=== PATIENT | male | born 1930 ===

== ENCOUNTER 2017-11-07 08:18 | Day surgery (SDC) | payer MEDICARE, MEDICAID ==
[2017-11-07 09:06] VITALS: BMI 24.2
[2017-11-07] MEDS ORDERED: Lactated Ringer's 1,000 ML IV ONE (11:10)
[2017-11-07] MEDS ORDERED: Lidocaine Hydrochloride 5 ML INJ ONE (11:11)
[2017-11-07] MEDS ORDERED: Propofol 10 mg/ml Inj (20 ML) ONE (11:11)
[2017-11-07] MEDS ORDERED: Etomidate 20 mg/10ml Inj IV ONE (11:15)
[2017-11-07 11:56] VITALS: TEMP 96.4
[2017-11-07 12:52] VITALS: O2SAT 100
[2017-11-07 13:06] VITALS: BP 108/72; PULSE 60; RESP 12
== END 2017-11-07 13:00 | disposition home or self-care (01) ==
LOC: C.ENDO 08:18
PROVIDERS: ATTEND Internal Medicine Gastroenterology
DX: R13.10 Dysphagia, unspecified (principal); Z79.899 Other long term (current) drug therapy; Z79.51 Long term (current) use of inhaled steroids; Z79.01 Long term (current) use of anticoagulants; Z95.1 Presence of aortocoronary bypass graft; I25.10 Atherosclerotic heart disease of native coronary artery without angina pectoris; I10 Essential (primary) hypertension; I48.91 Unspecified atrial fibrillation; I25.2 Old myocardial infarction; E55.9 Vitamin D deficiency, unspecified; K21.9 Gastro-esophageal reflux disease without esophagitis; K44.9 Diaphragmatic hernia without obstruction or gangrene; K29.70 Gastritis, unspecified, without bleeding
CPT/HCPCS: 43239; 82948; 88305; 88342; J2704; J7120